=== PATIENT | female | born 1995 | race African-American/Black ===

== ENCOUNTER 2017-02-26 23:34 | Observation (INO) | payer MEDICAID, OTHER ==
[~2017-02-26] VITALS: Ht 172.7 cm; Wt 73.5 kg
[~2017-02-26 23:34] MED LIST: PREN-88 PO
[2017-02-27] MEDS ORDERED: LACTATED RINGERS 1,000 ML IV SCH (00:14)
[2017-02-27] MEDS: TERBUTALINE SULFATE 1MG/ML VIAL SUBCUT SCH ×2 (00:34→01:42)
[2017-02-27 00:54] LABS: CLARITY URINE CLEAR (CLEAR); COLOR URINE YELLOW (YELLOW); GLUCOSE URINE NEGATIVE (NEGATIVE); KETONES URINE 4+ (NEGATIVE); LEUKOCYTE ESTERASE URINE NEGATIVE (NEGATIVE); NITRITE URINE NEGATIVE (NEGATIVE); OCCULT BLOOD URINE NEGATIVE (NEGATIVE); PROTEIN URINE NEGATIVE (NEGATIVE); SPECIFIC GRAVITY URINE 1.014 (1.005-1.030); UROBILINOGEN URINE 0.2 E.U./dL (0.2-1.0)
[2017-02-27 01:09] LABS: *AMPHETAMINES SCREEN URINE NEGATIVE (NEGATIVE); *BARBITURATES SCREEN URINE NEGATIVE (NEGATIVE); *BENZODIAZEPINES SCREEN URINE NEGATIVE (NEGATIVE); *COCAINE SCREEN URINE NEGATIVE (NEGATIVE); METHADONE URINE SCREEN NEGATIVE (NEGATIVE); OPIATES URINE SCREEN NEGATIVE (NEGATIVE); PHENCYCLIDINE URINE SCREEN NEGATIVE (NEGATIVE)
[2017-02-27 01:12] LABS: CANNABINOID URINE SCREEN PRESUMTIVE POSITIVE (NEGATIVE)
[2017-03-08 04:18] LABS: CANNABINOID CONFIRMATION URINE Positive (.)
== END 2017-02-27 04:00 | disposition home or self-care (01) ==
LOC: L&D 23:34
PROVIDERS: ADMIT Obstetrics & Gynecology; ATTEND Obstetrics & Gynecology
DX: O26.893 Other specified pregnancy related conditions, third trimester (principal); R10.30 Lower abdominal pain, unspecified; O62.9 Abnormality of forces of labor, unspecified; Z3A.35 35 weeks gestation of pregnancy
CPT/HCPCS: 80305; 80349; 81003; 96360; 96361; 96372; 99281; G0378; J3105; J7120

== ENCOUNTER 2017-03-23 04:00 | Inpatient (IN) | payer MEDICAID, OTHER ==
[~2017-03-23] VITALS: Ht 170.2 cm; Wt 76.2 kg
[2017-03-23] MEDS ORDERED: DEXT 5%/LACTATED RINGERS 1,000 ML IV SCH (05:24)
[2017-03-23] MEDS ORDERED: MISOPROSTOL 100MCG TABLET VG PRN (05:30)
[2017-03-23] MEDS ORDERED: CARBOPROST TROMETHAMINE 250 MCG/ML AMPUL IM PRN (05:30)
[2017-03-23] MEDS ORDERED: NALOXONE HCL 0.4 MG/ML 1ML VIAL IM PRN (05:30)
[2017-03-23] MEDS ORDERED: BUTORPHANOL TARTRATE 2 MG/ML VIAL IV PRN (05:30)
[2017-03-23] MEDS ORDERED: METHYLERGONOVINE MALEATE 0.2 MG/ML IM PRN (05:30)
[2017-03-23 06:21] LABS: BASOPHILS % 0.8 % (0.0-2.0); EOSINOPHILS % 2.1 % (0.0-5.0); HEMATOCRIT. 34.6 % (36.0-48.0); HEMOGLOBIN. 11.7 g/dL (12.0-16.0); LYMPHOCYTES % 26.9 % (20.0-50.0); MEAN CORPUSCULAR HEMOGLOBIN 29.9 pg (28.0-32.0); MEAN CORPUSCULAR VOLUME 88.6 fL (81.0-99.0); MEAN PLATELET VOLUME 10.4 fl (7.4-10.4); MONOCYTES % 13.3 % (2.0-8.0); NEUTROPHILS % 56.9 % (40.0-76.0); PLATELET 190 x1000/uL (130-400); RED BLOOD CELL COUNT 3.91 mill/uL (4.2-5.4); RED CELL DISTRIBUTION WIDTH 13.2 % (11.6-14.6)
[2017-03-23 06:29] LABS: CLARITY URINE CLEAR (CLEAR); COLOR URINE YELLOW (YELLOW); GLUCOSE URINE NEGATIVE (NEGATIVE); KETONES URINE NEGATIVE (NEGATIVE); LEUKOCYTE ESTERASE URINE NEGATIVE (NEGATIVE); NITRITE URINE NEGATIVE (NEGATIVE); OCCULT BLOOD URINE NEGATIVE (NEGATIVE); PH URINE 6.5 (4.5-8.0); PROTEIN URINE NEGATIVE (NEGATIVE); UROBILINOGEN URINE 0.2 E.U./dL (0.2-1.0)
[2017-03-23 06:35] LABS: INR 0.9; PARTIAL THROMBOPLASTIN TIME 30.7 sec (23.4-31.0); PROTHROMBIN TIME 9.5 sec (9.4-11.6)
[2017-03-23] MEDS: LACTATED RINGERS 1,000 ML IV SCH ×2 (06:45→07:06)
[2017-03-23] MEDS ORDERED: PHENYLEPHRINE HCL 10 MG/ML 1ML (IV VIAL) IV ONE (06:46)
[2017-03-23] MEDS ORDERED: OXYTOCIN 10 UNITS/ML 1ML ONE (06:46)
[2017-03-23] MEDS ORDERED: SODIUM CHLORIDE 0.9% 10ML VIAL ONE ×3 (06:46→15:03)
[2017-03-23] MEDS ORDERED: EPHEDRINE SULFATE 50MG/ML VIAL ONE (06:46)
[2017-03-23] MEDS ORDERED: CEFAZOLIN SODIUM 1000MG/VIAL ONE (06:47)
[2017-03-23 06:48] LABS: *AMPHETAMINES SCREEN URINE NEGATIVE (NEGATIVE); *BARBITURATES SCREEN URINE NEGATIVE (NEGATIVE); *BENZODIAZEPINES SCREEN URINE NEGATIVE (NEGATIVE); *COCAINE SCREEN URINE NEGATIVE (NEGATIVE); METHADONE URINE SCREEN NEGATIVE (NEGATIVE); OPIATES URINE SCREEN NEGATIVE (NEGATIVE); PHENCYCLIDINE URINE SCREEN NEGATIVE (NEGATIVE)
[2017-03-23 07:02] LABS: HEPATITIS B SURFACE ANTIGEN NEGATIVE; RUBELLA IGG 37.7 IU/mL (4.99-10)
[2017-03-23 07:12] LABS: CANNABINOID URINE SCREEN PRESUMTIVE POSITIVE (NEGATIVE)
[2017-03-23] MEDS ORDERED: DEXAMETHASONE 4MG/ML 1ML VIAL ONE (14:00)
[2017-03-23] MEDS ORDERED: MIDAZOLAM HCL 2 MG/2 ML VIAL ONE (14:00)
[2017-03-23] MEDS ORDERED: ONDANSETRON HCL 4MG/2ML VIAL ONE (14:00)
[2017-03-23] MEDS ORDERED: MORPHINE SULFATE/PF 1MG/ML 10ML AMP ONE (14:00)
[2017-03-23] MEDS ORDERED: NALOXONE HCL 0.4 MG/ML 1ML VIAL IV PRN (16:00)
[2017-03-23] MEDS ORDERED: ONDANSETRON HCL 4MG/2ML VIAL IV PRN ×2 (16:00→17:45)
[2017-03-23] MEDS ORDERED: DIPHENHYDRAMINE 50MG/ML VIAL IV PRN (16:00)
[2017-03-23] MEDS: KETOROLAC 30MG/ML VIAL IV SCH ×2 (16:51→23:16)
[2017-03-23] MEDS ORDERED: DEXT 5%/LR + PITOCIN 20UNITS/L 1,000 ML IV SCH (17:42)
[2017-03-23] MEDS ORDERED: IBUPROFEN 400MG TABLET PO PRN (17:45)
[2017-03-23] MEDS ORDERED: IBUPROFEN 800MG TABLET PO PRN (17:45)
[2017-03-23] MEDS ORDERED: HYDROCODONE/ACETAMINOPHEN 5/325MG TABLET PO PRN (17:45)
[2017-03-23] MEDS ORDERED: RHO(D) IMMUNE GLOBULIN 300 MCG/SYR IM PRN (17:45)
[2017-03-23] MEDS ORDERED: LANOLIN OINT 0.25 GM TUBE TOP PRN (17:45)
[2017-03-23 18:30] VITALS: BP 118/74
[2017-03-23 19:35] VITALS: BP 120/68
[2017-03-23 20:05] VITALS: BP 116/69
[2017-03-23 23:10] VITALS: BP 102/53
[2017-03-24] MEDS: HYDROCODONE/ACETAMINOPHEN 5/325MG TABLET PO PRN ×3 (05:43→23:34)
[2017-03-24 06:06] VITALS: BP 119/76
[2017-03-24 06:52] LABS: BASOPHILS % 0.3 % (0.0-2.0); HEMATOCRIT. 35.4 % (36.0-48.0); HEMOGLOBIN. 11.9 g/dL (12.0-16.0); LYMPHOCYTES % 8.7 % (20.0-50.0); MEAN CORPUSCULAR HEMOGLOBIN 29.8 pg (28.0-32.0); MEAN CORPUSCULAR VOLUME 88.2 fL (81.0-99.0); MEAN PLATELET VOLUME 10.1 fl (7.4-10.4); MONOCYTES % 6.9 % (2.0-8.0); NEUTROPHILS % 84.1 % (40.0-76.0); PLATELET 202 x1000/uL (130-400); RED BLOOD CELL COUNT 4.01 mill/uL (4.2-5.4); RED CELL DISTRIBUTION WIDTH 13.3 % (11.6-14.6)
[2017-03-24 08:00] VITALS: BP 117/77
[2017-03-24] MEDS ORDERED: INFLUENZA VIRUS VACCINE 0.5ML SYR IM ONE (08:00)
[2017-03-24] MEDS: PRENATAL VIT/FE FUMARATE/FA TABLET PO SCH (09:08)
[2017-03-24 18:05] VITALS: BP 115/80
[2017-03-24 20:00] VITALS: BP 110/59
[2017-03-25 04:00] VITALS: BP 112/65
[2017-03-25 08:19] VITALS: BP 113/70
[2017-03-25] MEDS: PRENATAL VIT/FE FUMARATE/FA TABLET PO SCH (09:15)
[2017-03-25 09:34] VITALS: BP 113/70
[2017-03-25] MEDS: HYDROCODONE/ACETAMINOPHEN 5/325MG TABLET PO PRN (09:34)
[2017-03-25] MEDS ORDERED: DOCUSATE SODIUM 100MG CAPSULE PO NR (09:45)
== END 2017-03-25 12:25 | disposition home or self-care (01) | DRG 540 ==
LOC: L&D 04:00 → OBSVTOIN 04:00 → 7EST PP/OB 18:33
PROVIDERS: ADMIT Obstetrics & Gynecology; ATTEND Obstetrics & Gynecology
PROC: 10D00Z1 Extraction of Products of Conception, Low, Open Approach (ICD-10-PCS; principal; 2017-03-23 14:28)
DX: O34.211 Maternal care for low transverse scar from previous cesarean delivery (principal); D64.9 Anemia, unspecified; O99.02 Anemia complicating childbirth; Z37.0 Single live birth; Z91.018 Allergy to other foods; Z3A.38 38 weeks gestation of pregnancy
CPT/HCPCS: 36415; 80305; 80349; 81003; 85025; 85610; 85730; 86592; 86703; 86762; 86850; 86900; 86920; 87340; 88307; 90686; A4216; J0171; J0690; J1100; J1200; J1885; J2250; J2274; J2370; J2405; J2590; J7120; J7121; A4315